=== PATIENT | female | born 1955 | race Caucasian/White ===

== ENCOUNTER → 2018-10-14 | Outpatient (CLI) | payer OTHER ==
[~2018-10-14] MED LIST: BUPR300T49 PO; FERR325T18 PO; OMNIPAQUE 350 MG/ML, 100ML BOTTLE ONE; OXYC5SOL8 PO; PANT40TA5 PO; SUCR1TAB PO
== END | disposition home or self-care (01) ==
LOC: CFH 12:02
PROVIDERS: ATTEND Physician Assistant
DX: K44.9 Diaphragmatic hernia without obstruction or gangrene (principal); K42.9 Umbilical hernia without obstruction or gangrene; K57.32 Diverticulitis of large intestine without perforation or abscess without bleeding
CPT/HCPCS: 74177; 82565; Q9967

== ENCOUNTER 2020-12-12 10:32 | Outpatient (CLI) | payer OTHER ==
[~2020-12-12 10:32] MED LIST changes: -OMNIPAQUE 350 MG/ML, 100ML BOTTLE ONE; -PANT40TA5 PO; +PANT40TA6 PO
== END 2020-12-12 23:59 | disposition home or self-care (01) ==
LOC: RAD 10:32
PROVIDERS: ATTEND Orthopaedic Surgery
DX: Z96.641 Presence of right artificial hip joint (principal)
CPT/HCPCS: 78315; A9503